=== PATIENT | male | born 1955 | race Caucasian/White ===

== ENCOUNTER 2018-09-28 08:52 | Emergency (ER) | payer OTHER ==
[~2018-09-28] VITALS: Ht 172.7 cm; Wt 75.7 kg
== END 2018-09-28 11:45 | disposition home or self-care (01) ==
LOC: ER 08:52
DX: I16.0 Hypertensive urgency (principal); I10 Essential (primary) hypertension; L02.426 Furuncle of left lower limb; L02.425 Furuncle of right lower limb

== ENCOUNTER 2023-03-21 08:47 | Outpatient (CLI) | payer OTHER | END 2023-03-21 08:54 | disposition home or self-care (01) | LOC: SONOGRAMA 08:47 | PROVIDERS: ATTEND Pathology Anatomic Pathology & Clinical Pathology | DX: D34 Benign neoplasm of thyroid gland (principal); E04.9 Nontoxic goiter, unspecified ==

== ENCOUNTER 2025-01-11 08:01 | Outpatient (CLI) | payer OTHER | END 2025-01-11 08:05 | disposition home or self-care (01) | LOC: SONOGRAMA 08:01 | PROVIDERS: ATTEND Pathology Anatomic Pathology & Clinical Pathology | DX: D34 Benign neoplasm of thyroid gland (principal); E07.89 Other specified disorders of thyroid; E04.1 Nontoxic single thyroid nodule ==